=== PATIENT | male | born 1965 | race Caucasian/White ===

== ENCOUNTER 2017-02-11 23:36 | Inpatient (IN) ==
--- NOTE | 2017-02-12 00:58 | Emergency Department Report ---
General Adult HPI - General Chief complaint: Abdominal Pain Stated complaint: Abd pain Time Seen by Provider: 02/12/17 00:04 Source: patient, family Mode of arrival: ambulatory Limitations: no limitations - History of Present Illness HPI narrative: 51-year-old male presents to the emergency department with the chief complaint of abdominal discomfort. Patient notes generalized abdominal discomfort which began at approximately 2:30 this afternoon. Patient states that he is experiencing nausea and has had 3 bowel movements today. Patient has a history of small bowel obstruction in the past. Patient states that his symptoms are similar to his prior SBO which is why he presents to the emergency department today. Patient describes his abdominal discomfort as mild to moderate. No radiation. It is dull and crampy. He does not note any exacerbating or remitting factors. Patient denies any other complaints or associated symptoms. He was at home when the symptoms began. Symptoms have been persistent in nature since onset. Patient denies any trauma, travel, poorly prepared food or recent antibiotic use. - Related Data Home Medications Medication Instructions Recorded Confirmed Ascorbic Acid [Vitamin C] 1 tab PO DAILY #0 06/30/15 02/12/17 Calcium Carbonate/Vitamin D3 2 tab PO BID #0 06/30/15 02/12/17 (Calcium 600 + D Tablet) Imipramine HCl [Tofranil] 2 tab PO DAILY #0 06/30/15 02/12/17 Levetiracetam (Keppra) 1 tab PO 1700 #0 06/30/15 02/12/17 VITAMIN B6 1 tab PO DAILY #0 06/30/15 02/12/17 carBAMazepine [Tegretol] 1 tab PO NOON #0 06/30/15 02/12/17 carBAMazepine [Tegretol] 2 tab PO BID #0 06/30/15 02/12/17 levETIRAcetam [Levetiracetam] 1,500 mg PO AM 02/12/17 02/12/17 Allergies Allergy/AdvReac Type Severity Reaction Status Date / Time morphine Allergy Unknown Verified 02/12/17 00:25 phenobarbital Allergy Unknown Verified 02/12/17 00:25 primidone Allergy Unknown Verified 02/12/17 00:25 valproic acid Allergy Unknown Verified 02/12/17 00:25 Review of Systems Constitutional: Denies: fever, chills Eyes: Denies: eye pain, vision change ENT: Denies: ear pain, throat pain Cardiovascular: Denies: chest pain, palpitations Respiratory: Denies: cough, dyspnea Gastrointestinal: Reports: abdominal pain, nausea, diarrhea. Denies: vomiting Genitourinary: Denies: urgency, dysuria Musculoskeletal: Denies: back pain, arthralgia Integumentary: Denies: erythema, rash Neurological: Denies: headache, numbness Psychiatric: Denies: anxiety, depression Endocrine: Denies: fatigue, heat or cold intolerance Hematological/Lymphatic: Denies: easy bleeding, easy bruising Allergic/Immunologic: Denies: facial swelling, urticaria PFSH Patient Stated Medical History Seizures Yes Obstructive Bowel Yes SBO, MR Surgical History: Appendectomy, cholecystectomy, adhesion lysis, pilonidal cyst removal, oral surgery Family History: COPD, CAD, diabetes - Social History Smoking status: Never smoker Substance use type: does not use Alcohol intake frequency: does not drink Physical Exam - Limitations Limitations: no limitations - General General appearance: alert, in no apparent distress - Normal Exams: Head:: Normocephalic without trauma Eyes:: Pupils are PERRLA w/ EOMI, No scleral icterus, irritation, or foreign bodies noted ENMT:: No facial trauma, nasal exudates, pharyngeal erythema, or exudates are noted Dental: No fractured, loose, or missing teeth noted Neck:: Full range of motion, without adenopathy, JVD, bruits or thyromegaly Chest/Respirations:: Clear all canas, with good airflow, and symmetry bilaterally Cardiovascular:: Regular rate and rhythm, without murmur or gallop, Pulses 2+ all extremities, capillary refill, <2 seconds all extremities Abdomen:: Bowel sounds positive, non-distended, no hepatosplenomegaly, masses or bruits noted (Soft. Mild generalized tender to palpation without rebound or guarding. No CVAT. ) Lymphatic:: No lymphadenopathy, or lymphedema noted Musculoskeletal:: No tenderness, or deformity noted, good range of motion, all extremities Integumentary:: No rashes, hives, or bruising noted, hair and nails, without abnormality Neurological:: Patient is alert, and oriented, cranial nerves, motor/sensory/ cerebellar, exams w/o gross deficits, to observation Psychiatric:: Patient exhibits, appropriate attention, emotion and affect Course Vital Signs Temperature 98.8 F 02/11/17 23:42 Pulse Rate 93 02/11/17 23:42 Respiratory Rate 18 02/11/17 23:42 Blood Pressure 143/78 H 02/11/17 23:42 Pulse Oximetry 97 02/11/17 23:42 Temperature 98.8 F 02/11/17 23:42 Pulse Rate 90 02/12/17 02:10 Respiratory Rate 15 02/12/17 02:10 Blood Pressure 126/67 02/12/17 02:10 Pulse Oximetry 97 02/12/17 02:10 Medical Decision Making - MDM Narrative Medical decision making narrative: Labs/imaging were discussed in detail with the patient and questions are answered. Patient is given IV hydration. Patient is given parental antiemetic medications intravenously with improvement of symptoms in the emergency department. Patient's CT scan of the abdomen and pelvis is positive for a small bowel obstruction. Patient's nausea and vomiting is resolved with Zofran. Patient is discussed with the hospitalist Dr. Samuel Lyons and admitted to the service of Dr. Lugo in improved condition. Patient and family are in agreement with the current plan of management. Dr. Lyons will obtain his own surgical consultation. Patient has seen both Dr. Lizama and leia Heredia in the past. Accepting physician is in agreement with the current plan of management. No further orders. Patient declined offered analgesic pain medication in the ED. - Differential Diagnosis UTI, SBO, viral syndrome, metabolic disorder - Lab Data Result diagrams: 02/12/17 00:42 02/12/17 00:42 Lab Results 02/12/17 02/12/17 02/12/17 Range/Units 00:42 00:42 00:42 WBC 7.5 (4.5-11.0) T/MM3 RBC 4.73 (4.50-5.90) M/MM3 Hgb 15.2 (13.5-17.5) GM/DL Hct 44.0 (41-53) % MCV 93.0 (80-100) UM3 MCH 32.1 (26-34) UUG MCHC 34.5 (31-37) GM/DL RDW Std Deviation 43.8 (36.9-50.2) FL Plt Count 152 (130-400) T/MM3 MPV 9.2 L (9.4-12.4) UM3 Immature Gran % (Auto) 0.1 (0.0-0.5) % Neut % (Auto) 69.0 H (33-66) % Lymph % (Auto) 19.2 L (23-45) % [facility] % (Auto) 10.9 H (0-9.0) % Eos % (Auto) 0.4 (0-4) % Baso % (Auto) 0.4 (0-2) % Neut # 5.2 (1.8-7.7) T/MM3 Lymph # 1.4 (1-4.8) T/MM3 [facility] [facility] # 0.8 (0-0.8) T/MM3 Eos # 0.0 (0-0.5) T/MM3 Baso # 0.0 (0-0.2) T/MM3 Abs Immat Gran (auto) 0.01 (0.00-0.03) T/MM3 Turbidity < 20 (0-20) Sodium 140 (134-144) MEQ/L Potassium 4.0 (3.6-5) MEQ/L Chloride 104 (98-107) MEQ/L Carbon Dioxide 29 (22-30) MEQ/L Anion Gap 7 (5-15) MEQ/L BUN 19.0 (9-20) MG/DL Creatinine 0.7 L (0.8-1.5) MG/DL GFR Calculation 118 BUN/Creatinine Ratio 27 H (6-26) RATIO Glucose 100 (75-110) MG/DL Calculated Osmolality 271 (261-280) MOSM/KG Calcium 9.5 (8.4-10.2) MG/DL Total Bilirubin 1.20 (0.20-1.30) MG/DL Icterus Index < 2 (0-7) AST 188 H (17-59) U/L ALT 119 H (21-72) U/L Alkaline Phosphatase 107 (38-126) U/L Total Protein 7.2 (6.3-8.2) G/DL Albumin 4.4 (3.5-5.0) G/DL Globulin 2.8 (2.4-3.6) G/DL Albumin/Globulin Ratio 1.6 (1.1-2.2) RATIO Lipase 233 (23-300) U/L Specimen Hemolysis < 15 (0-25) Ur Collection Type Urine, clean catch Urine Color Yellow (YELLOW) Urine Clarity Clear Urine pH 7.0 (5.0-8.0) Ur Specific [place] 1.020 (1.015-1.025) Urine Protein 1+ A (NEGATIVE) Urine Glucose (UA) Negative (NEGATIVE) Urine Ketones Negative (NEGATIVE) Urine Occult Blood Negative (NEGATIVE) Urine Nitrate Negative (NEGATIVE) Urine Bilirubin Negative (NEGATIVE) Urine Urobilinogen 1.0 (NORMAL) EU/DL Ur Leukocyte Esterase Negative (NEGATIVE) Urine RBC None seen (0-3) /HPF Urine WBC None seen (0-5) /HPF Urine Bacteria None seen (NEGATIVE) Ur Culture Indicated? Cult not indicated - Radiology Data CT ABD/PELVIS: Small bowel obstruction. No free air. - EKG Data EKG #1 EKG results narrative: Sinus rhythm. 90 bpm. No STEMI. Disposition Clinical Impression: Small bowel obstruction Disposition: To [facility] Print Language: Setswana Condition: Improved Prescriptions: No Action carBAMazepine [Tegretol] 2 tab PO BID #0 carBAMazepine [Tegretol] 1 tab PO NOON #0 Imipramine HCl [Tofranil] 2 tab PO DAILY #0 Calcium Carbonate/Vitamin D3 (Calcium 600 + D Tablet) 2 tab PO BID #0 VITAMIN B6 1 tab PO DAILY #0 Ascorbic Acid [Vitamin C] 1 tab PO DAILY #0 Levetiracetam (Keppra) 1 tab PO 1700 #0 levETIRAcetam [Levetiracetam] 1,500 mg PO AM Referrals: Gerry Cat MD [Family Provider] - Time of Disposition: 03:00 - Seen By: physician
[2017-02-12] MEDS ORDERED: NS 1,000 ML IV ONE (01:04)
[2017-02-12] MEDS ORDERED: SALINE FLUSH 10ml SYRINGE ONE (01:48)
[2017-02-12] MEDS ORDERED: IOHEXOL 300mg/ml 100ml INJECTION ONE (01:48)
[2017-02-12] MEDS ORDERED: NS 0 ML ONE (01:48)
[2017-02-12] MEDS ORDERED: ONDANSETRON 4 MG/2 ML INJECTION IVP ONE (02:38)
--- NOTE | 2017-02-12 03:41 | History & Physical Report ---
History of Present Illness Date: 02/12/17 Chief complaint: abd pain HPI: Pleasant 51 y/o WM presents with N/v x 2 days. Has a hx of recurrent SBO, pain in abd periumbilical with 3-4/10 on pain scale now. started around 2 pm on the day prior to admit, he has not had any vomiting but has had nausea. he actually had to have surgery june 2016 and one month later in july 2016 , this was performed at hospital by dr. suh. he denies having much gas at all, really not any this afternoon or this evening. in previous episodes he had complications of postoperative ileus and hypoxia, he was in the hospital for 20 days following the last one. back in [id number] he did have a seizure around the time of the surgeries. he's not had any seizures suddenly at all. no fever chills no chest pain or shortness of breath. Review of Systems - Integumentary/Breasts Integumentary: Absent: erythema, rash PFSH Patient Stated Medical History Seizures Yes Obstructive Bowel Yes Surgical History: Appendectomy, cholecystectomy, adhesion lysis, pilonidal cyst removal, oral surgery - Social History Smoking status: Never smoker Substance use type: does not use Alcohol intake frequency: does not drink Current occupational status: employed Current occupation: works as a senior media director Current residence: Apartment/Private Home (lives with his sister and brother-in- law) Medications Home Medications Medication Instructions Recorded Confirmed Type Ascorbic Acid [Vitamin C] 1 tab PO DAILY #0 06/30/15 02/12/17 History Calcium Carbonate/Vitamin D3 2 tab PO BID #0 06/30/15 02/12/17 History (Calcium 600 + D Tablet) Imipramine HCl [Tofranil] 2 tab PO DAILY #0 06/30/15 02/12/17 History Levetiracetam (Keppra) 1 tab PO 1700 #0 06/30/15 02/12/17 History VITAMIN B6 1 tab PO DAILY #0 06/30/15 02/12/17 History carBAMazepine [Tegretol] 1 tab PO NOON #0 06/30/15 02/12/17 History carBAMazepine [Tegretol] 2 tab PO BID #0 06/30/15 02/12/17 History levETIRAcetam [Levetiracetam] 1,500 mg PO AM 02/12/17 02/12/17 History Allergies Allergy/AdvReac Type Severity Reaction Status Date / Time morphine Allergy Unknown Verified 02/12/17 00:25 phenobarbital Allergy Unknown Verified 02/12/17 00:25 primidone Allergy Unknown Verified 02/12/17 00:25 valproic acid Allergy Unknown Verified 02/12/17 00:25 Exam Vital Signs: Temperature 97.4 F 02/12/17 03:23 Pulse Rate 89 02/12/17 03:23 Respiratory Rate 15 02/12/17 03:23 Blood Pressure 126/67 02/12/17 03:23 Pulse Oximetry 98 02/12/17 03:23 Oxygen Delivery Method Room Air Height: 1.75 m Weight: 106.6 kg - Constitutional Present: mild distress, obese - Routine HEENT Exam ENT: Present: mucous membranes dry - Routine Respiratory Exam Present: CTA bilaterally. Absent: accessory muscle use - Routine Cardiovascular Exam Present: RRR, S1, S2, no murmur - Routine Abdominal Exam Present: soft Comments: quiet bowel sounds, moderately distended. mildly tender to palpation. Results - Labs CBC & Chem 7: 02/12/17 00:42 02/12/17 00:42 Assessment and Plan (1) Small bowel obstruction Current visit: Yes Status: Acute 02/12/17 03:42 hx of this probably d/t adhesions, NPO for now, with hx, going to ask that NG be placed Hopefully with conservative care can avoid need for surgical intervention. with his past history, he said needed surgeries, hopefully with conservative care we can give this a try, but i'm concerned enough, need to consult surgery in AM to follow. 02/12/17 04:32 (2) Epilepsy Current visit: Yes Status: Acute 02/12/17 03:42 cont keppra IV while NPO (3) Cognitive impairment Current visit: Yes Status: Acute DVT Prophylaxis: SCD's, [facility] Course Summary Disclaimer: The visit summary below is not to be considered part of the above Progress Note.
[2017-02-12 04:33] VITALS: BMI 35.2
[2017-02-12] MEDS: PROMETHAZINE 25 MG INJECTION IVP PRN (04:45)
[2017-02-12] MEDS: HYDROMORPHONE 2 MG/ML INJECTION IVP PRN (04:45)
[2017-02-12] MEDS: D5-1/2NS with KCL 20mEq 1,000 ML IV SCH ×3 (04:46→22:28)
[2017-02-12] MEDS ORDERED: LEVETIRACETAM INJ 1,000 MG in NS 100 ML IV SCH ×2 (07:00→22:00)
--- NOTE | 2017-02-12 08:06 | CT Scan Report ---
Indication: abd pain PROCEDURE: CT abdomen pelvis wo con: Encounter: Initial Comparison: KUB and small bowel series dated July 03, [address] abdomen/pelvis dated June 30, 2015 Technique: Axial CT images were performed through the abdomen and pelvis without intravenous contrast. Coronal and sagittal two-dimensional reformats. Automated Exposure Control and Iterative Reconstruction dose reducing techniques were utilized. Findings: The lung bases are clear. The unenhanced contours of the liver are unremarkable. Gallbladder is unremarkable. The spleen, pancreas and adrenal glands are within normal limits. Kidneys appear normal. Distended small bowel loops are seen in the anterior abdomen and pelvis. There is transition to decompressed distal small bowel seen in the right anterior pelvis. Short segment of decompressed terminal ileum. No free air. Bladder is normal. Unchanged. Impression: High-grade partial small bowel obstruction in the ileum probably due to pelvic adhesions. The appearance is very similar to the 2014 comparison. Surgical consultation is recommended. There is a preliminary report by [facility]. .
[2017-02-12] MEDS ORDERED: HEPARIN 5,000unit/ml 1ml INJECTION SUB-Q SCH (09:00)
[2017-02-12] MEDS: PANTOPRAZOLE 40 MG INJECTION IVP SCH (09:04)
[2017-02-12] MEDS: HEPARIN SUB-Q 5,000 UNITS/0.5 ML INJECTION SQ SCH ×2 (09:16→17:39)
[2017-02-12] MEDS: CarBAMazepine 200 MG TABLET PO SCH ×3 (11:47→22:04)
[2017-02-12] MEDS: CETACAINE SPRAY 20 G MM PRN ×2 (12:02→14:27)
--- NOTE | 2017-02-12 14:17 | XRay Report ---
Indication: SBO PROCEDURE: XR KUB w upright: Encounter: Initial Comparison: CT abdomen and pelvis dated February 12, 2017 Findings: Nasogastric tube in place with the tip and side port projecting over the body of the stomach. No free air identified. Dilated small and large bowel with multiple air-fluid levels present. Small bowel dilatation up to 6.5 cm in the left pelvis. There is some colonic gas present to the level of the sigmoid. Impression: New nasogastric tube appears appropriately positioned. Continued findings of small bowel obstruction. .
[2017-02-12] MEDS ORDERED: NS FLUSH BAG 500ml IV PRN (21:21)
[2017-02-12] MEDS ORDERED: SALINE FLUSH 10ml SYRINGE IV PRN (21:21)
[2017-02-13] MEDS: D5-1/2NS with KCL 20mEq 1,000 ML IV SCH ×5 (00:02→18:02)
[2017-02-13] MEDS: HEPARIN SUB-Q 5,000 UNITS/0.5 ML INJECTION SQ SCH ×3 (00:14→16:44)
[2017-02-13] MEDS: CETACAINE SPRAY 20 G MM PRN ×2 (02:29→08:38)
[2017-02-13] MEDS: PANTOPRAZOLE 40 MG INJECTION IVP SCH (08:18)
[2017-02-13] MEDS: PYRIDOXINE 100mg TABLET PO SCH (08:18)
[2017-02-13] MEDS: CarBAMazepine 200 MG TABLET PO SCH ×3 (08:18→16:44)
[2017-02-13] MEDS ORDERED: NS IV SCH (09:00)
[2017-02-13] MEDS ORDERED: LEVETIRACETAM IV SCH (09:00)
[2017-02-13] MEDS ORDERED: VITAMIN B6 PO SCH (09:00)
[2017-02-13] MEDS: HYDROMORPHONE 2 MG/ML INJECTION IVP PRN (10:41)
--- NOTE | 2017-02-13 12:19 | Progress Note ---
Subjective: Marcelo was seen with his sister at bedside. He reports his nose hurts but he is having less throat pain and yesterday. He reports having some flatus this morning please had no bowel movement. He denies abdominal pain but is having some back pain requiring IV pain medications earlier which resulted in transient nausea. He denied dyspnea, fever, or lightheadedness. Patient has been ambulating without difficulty. Nursing reports minimal output per the NG. Objective Vital signs: Temperature 98.0 F 02/13/17 07:29 Pulse Rate 98 02/13/17 07:29 Respiratory Rate 18 02/13/17 07:29 Blood Pressure 133/71 02/13/17 07:29 Pulse Oximetry 97 02/13/17 07:29 Oxygen Delivery Method Room Air EXAM General-NAD, alert HEENT-conjunctiva clear, impaired eye movements to the left consistent with sixth cranial nerve palsy, sclera anicteric this morning, oropharynx clear Lungs-respirations nonlabored, good airflow, breath sounds clear Cardiac-regular rhythm, S1-S2 Abd-abdomen moderately distended, soft, minor tenderness diffusely without guarding, sparse bowel sounds Ext-without edema Neuro-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 Patient denies ongoing Repeat flat/upright KUB to monitor small bowel loop dilatation. Dr. Mckeon consulted for surgical input-discussed with him earlier this morning. Clinically stable, Keppra changed to oral administration per NG in conjunction with Tegretol. White count down-reassess in a.m. at which time liver enzymes will be repeated as well. Heating pad added for back pain. Sepsis Assessment - Evaluation Sepsis screening result: No Definite Risk Hospital Course Summary Disclaimer: The visit summary below is not to be considered part of the above Progress Note. Hospital Course: 02/12/17 Admitted with small bowel obstruction-NG tube placed to low intermittent suction. IV fluids, IV antiemetics/pain medications if needed. History recurrent small bowel obstructions with surgical intervention 2 previously. Seizure medications resumed-Tegretol by mouth with NG clamped post administration. Liver enzymes elevated, likely due to seizure medications reviewed reassess in several days. 02/13/17 12:26 Reported flatus this morning, minimal output per NG. Patient denies ongoing Repeat flat/upright KUB to monitor small bowel loop dilatation. Dr. Mckeon consulted for surgical input-discussed with him earlier this morning. Clinically stable, Keppra changed to oral administration per NG in conjunction with Tegretol. White count down-reassess in a.m. at which time liver enzymes will be repeated as well. Heating pad added for back pain.
--- NOTE | 2017-02-13 13:46 | XRay Report ---
Indication: SBO PROCEDURE: XR KUB w upright: Encounter: Initial Comparison: February 12, 2017 Findings: Nasogastric tube in stable position. Continued air-fluid levels within small and large bowel. No free air appreciated. There is some distal rectal gas present. Dilated small bowel in the lower abdomen remains up to 8.9 cm in diameter. Impression: Continued small bowel dilatation concerning for high-grade or complete small bowel obstruction. .
--- NOTE | 2017-02-13 14:46 | Consultation ---
DATE OF CONSULTATION 02/13/2017 HISTORY OF PRESENT ILLNESS This patient is 51 years old. This patient underwent a cholecystectomy and incidental appendectomy at some time in the . The patient did undergo an operation for treatment of small bowel obstruction about two years after this cholecystectomy operation at some time in the by Dr. Kassandra Conte at [facility]. The patient did have another small bowel obstruction in 2001. This was treated with nonoperative treatment. The patient was hospitalized at [facility] from 06/30/2015 to 2014 with a partial small bowel obstruction. Dr. Lazaro Heredia saw the patient in consultation for Dr. Cohn during this hospitalization. This episode of partial small bowel obstruction did resolve with nonoperative treatment. The patient did undergo an operation for lysis of abdominal adhesions and release of a small bowel obstruction on 07/18/[address] Jain at [facility] at [place], [place]. The family states that this was a 4-hour long operation. The family states they were told that there was extensive scar tissue and adhesions throughout the abdomen. The patient did undergo an exploratory laparotomy operation in July 2016 about 10 days after the 07/18/2016 operation and this was performed by Dr. Jain at [facility] at [place], [place]. The abdomen of the patient was explored at this time because there was concern that the patient might have some leakage from bowel somewhere. The family states that the operation lasted for about two hours and that Dr. Jain was not able to identify any site of leakage from the bowel during this exploratory laparotomy. 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 The patient states they were told by Dr. Jain after all this that he would never operate on the patient again at [facility]. During the time that the enterocutaneous fistula was healing, the family did take the patient to Dr. Galileo Valentine at [place], [place] for a second opinion about the enterocutaneous fistula. Dr. Valentine did tell them at this time that he would not operate on the enterocutaneous fistula until after at least 6 months of nonoperative treatment following the operation in July 2016. He told the family that even if he did go in after six months that it would be an extremely long and difficult operation. Fortunately, the enterocutaneous fistula did ultimately close without the need for an operation. The patient did experience the onset of some periumbilical abdominal pain on . He had some nausea and vomiting. The family did not take the patient back to [facility] at this time because they had been told by Dr. Jain that he would never perform an operation on the patient at [facility]. The family therefore brought the patient back to [facility] at this time and the patient was evaluated at the emergency room at [facility] on 02/12/2015. The patient did undergo a CT scan of the abdomen and pelvis at the time of evaluation in the emergency room at [facility] which did show a high-grade partial small bowel obstruction at the ileum probably due to pelvic adhesions. The appearance was similar to the appearance on CT scans performed at the time of the 2014 hospitalization. The patient was admitted to [facility]. The patient has been receiving nonoperative treatment with intravenous fluids, bowel rest and nasogastric tube decompression of the upper gastrointestinal tract. The possible need for TPN has been discussed with the family. The patient is not having any abdominal pain at this time. He has been passing some flatus today. The patient did undergo KUB and upright abdominal x-rays on 02/12/2017 which showed continued findings of small bowel obstruction. There are dilated small bowel and large bowel loops with multiple air-fluid levels. There is some gas in the colon at the level of the sigmoid colon. PAST MEDICAL HISTORY Previous Operations. 1. Pilonidal cystectomy in [address]assandra Conte at [facility] at [place], [place]. 2. Open cholecystectomy and incidental appendectomy at some time in the by Dr. Kassandra Conte at [facility] at [place], [place]. The family states that this was sometime after 1990. 3. Exploratory laparotomy with release of small bowel obstruction at some time in the by Dr. Kassandra Conte at [facility] at [place], [place]. This was performed about two years after the open cholecystectomy operation. 4. Exploratory laparotomy with lysis of intraabdominal adhesions and release of small bowel obstruction on 07/18/[address] Jain at [facility] at [place], [place]. The family states that this was a 4-hour long operation. The family states that they were told afterwards by Dr. Jain that there was extensive scar tissue and adhesions throughout the abdomen at this operation. 5. Exploratory laparotomy in July [address] Jain at [facility] at [place], [place]. This was about 10 days after the 07/18/2016 operation. The family states that the patient underwent this exploratory laparotomy operation because of concern about possible leakage from the bowel somewhere. They state that Dr. Jain explored the abdomen for two hours and could not find any site for leakage from the bowel. 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 The family states that Dr. Jain told them that he would never operate on the patient again at [facility] after this operation because of the hostile abdomen which the patient does now seem to have. PHYSICAL EXAMINATION VITAL SIGNS: Temperature is 98 degrees oral. Pulse is 98. Respiratory rate is 18. Blood pressure is 133/71. Oxygen saturation is 97% on room air. ABDOMEN: The abdomen is soft and nontender at this time. There are old midline vertically oriented abdominal incision scars. There is some mild distention of the abdomen. LABORATORY DATA White blood cell count is 3,900 today with no bands. There are 47.7% neutrophils and 33.9% lymphocytes. Hemoglobin is 14.3. Hematocrit is 43. Electrolytes are normal. IMAGING DATA The patient did have a CT scan of the abdomen and pelvis on 02/12/2017 at [facility] which shows a high-grade partial small bowel obstruction at the ileum probably due to pelvic adhesions. The patient did have KUB and upright abdominal x-rays performed on 02/12/2017 which show dilated small bowel and large bowel with multiple air-fluid levels. There is small bowel dilation up to 6.5 cm in the left pelvis. There is some colon gas present at the level of sigmoid colon. There are continued findings of small bowel obstruction. IMPRESSION 1. High-grade partial small bowel obstruction at the ileum probably due to pelvic adhesions. 2. 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 3. Status post enterocutaneous fistula in July 2016. RECOMMENDATION 1. Long trial of nonoperative treatment to see if the partial small bowel obstruction will respond to nonoperative treatment. This can consist of bowel rest, intravenous fluid administration and decompression of the upper gastrointestinal tract with nasogastric tube decompression. The patient will probably require nutritional support with TPN during this time. Hopefully, the partial small bowel obstruction will resolve with nonoperative treatment. MTDD
[2017-02-13] MEDS ORDERED: LEVETIRACETAM 500 MG TABLET PO SCH (21:00)
[2017-02-14] MEDS: PROMETHAZINE 25 MG INJECTION IVP PRN (01:29)
[2017-02-14] MEDS: D5-1/2NS with KCL 20mEq 1,000 ML IV SCH ×3 (01:33→10:23)
[2017-02-14] MEDS: HEPARIN SUB-Q 5,000 UNITS/0.5 ML INJECTION SQ SCH ×2 (01:33→09:43)
[2017-02-14 08:15] VITALS: BP 144/82; PULSE 99; RESP 18; TEMP 97.6; O2SAT 97
--- NOTE | 2017-02-14 08:31 | XRay Report ---
Indication: Small bowel obstruction PROCEDURE: XR KUB w upright: Encounter: Initial Comparison: February 13, 2017 Findings: Nasogastric tube remains in place. Dilated small bowel loops with air-fluid levels are redemonstrated. No gross air. Severe small bowel dilatation up to 8.8 cm in the upper abdomen. Scattered areas of colonic gas are seen through the level of the rectum. Impression: Continued findings concerning for a high-grade small bowel obstruction. .
[2017-02-14] MEDS ORDERED: LEVETIRACETAM 500 MG TABLET PO SCH (09:00)
[2017-02-14] MEDS: CarBAMazepine 200 MG TABLET PO SCH (09:43)
[2017-02-14] MEDS: PYRIDOXINE 100mg TABLET PO SCH (10:12)
[2017-02-14] MEDS: PANTOPRAZOLE 40 MG INJECTION IVP SCH (10:16)
--- NOTE | 2017-02-14 10:47 | Discharge Instructions ---
Discharge Plan - Med Rec/Dispo [place] Instructions: Bowel Obstruction (DC) Prescriptions: New Heparin [Heparin Sq] 5,000 units SQ Q8HR vial Hydromorphone [Dilaudid] 0.2 - 1 mg IVP Q2H PRN vial PRN Reason: Pain Pantoprazole IV [Protonix IV] 40 mg IVP DAILY vial Tetracaine/Benzocaine/Butamben [Cetacaine [place]] 1 spray MM PRN PRN #1 bottle PRN Reason: Pain Continue carBAMazepine [Tegretol] 2 tab PO BID #0 carBAMazepine [Tegretol] 1 tab PO NOON #0 Imipramine HCl [Tofranil] 2 tab PO DAILY #0 Calcium Carbonate/Vitamin D3 (Calcium 600 + D Tablet) 2 tab PO BID #0 Ascorbic Acid [Vitamin C] 1 tab PO DAILY #0 levETIRAcetam [Levetiracetam] 1,000 mg PO 1700 levETIRAcetam [Levetiracetam] 1,500 mg PO AM Changed VITAMIN B6 100 mg PO DAILY #0 Discharge Instructions/Outpatient Orders: Final Provider Discharge Instructions Location: Determined By Patient - Disposition 02 To [facility] Acute Care
--- NOTE | 2017-02-14 10:58 | Discharge Summary ---
Discharge Information Date of admission: 02/12/17 03:45 Anticipated date of discharge: 02/14/17 Attending Physician: Jovana Lugo MD Primary care physician: Gerry Cat MD Consults: Consulting Provider: Zach Mckeon Reason For Exam: SBO - Discharge Diagnosis (1) Small bowel obstruction Status: Acute (2) Epilepsy Qualifiers: Epilepsy type: unspecified Intractability: not intractable Status epilepticus: without status epilepticus Qualified Code(s): G40.909 - Epilepsy , unspecified, not intractable, without status epilepticus Problem Details: no recent seizures Status: Chronic - Laboratory Labs: Admission labs on 02/12 included white count of 7.5, hemoglobin 15.2 with unremarkable differential. Electrolytes were within normal limits, creatinine 0.7, AST 188, ALT 119, urinalysis negative other than +1 protein. 02/14/17 04:21 Segs 36, bands 6, lymphocytes 43, monocytes 14, eosinophils 1 02/14/17 04:21 AST 77, ALT 206, alkaline phosphatase 128 - Radiology Radiology: CT abdomen/pelvis on 02/12/17: Findings: The lung bases are clear. The unenhanced contours of the liver are unremarkable. Gallbladder is unremarkable. The spleen, pancreas and adrenal glands are within normal limits. Kidneys appear normal. Distended small bowel loops are seen in the anterior abdomen and pelvis. There is transition to decompressed distal small bowel seen in the right anterior pelvis. Short segment of decompressed terminal ileum. No free air. Bladder is normal. Impression: High-grade partial small bowel obstruction in the ileum probably due to pelvic adhesions. The appearance is very similar to the 2015 comparison. Surgical consultation is recommended. Flat/upright KUB later in the day on 02/12: Nasogastric tube in place with the tip and side port projecting over the body of the stomach. No free air identified. Dilated small and large bowel with multiple air-fluid levels present. Small bowel dilatation up to 6.5 cm in the left pelvis. There is some colonic gas present to the level of the sigmoid. Impression: New nasogastric tube appears appropriately positioned. Continued findings of small bowel obstruction. Flat/upright KUB on 02/13: Nasogastric tube in stable position. Continued air-fluid levels within small and large bowel. No free air appreciated. There is some distal rectal gas present. Dilated small bowel in the lower abdomen remains up to 8.9 cm in diameter. Impression: Continued small bowel dilatation concerning for high-grade or complete small bowel obstruction. Flat/upright KUB on 02/14: Nasogastric tube remains in place. Dilated small bowel loops with air-fluid levels are redemonstrated. No gross air. Severe small bowel dilatation up to 8.8 cm in the upper abdomen. Scattered areas of colonic gas are seen through the level of the rectum. Impression: Continued findings concerning for a high-grade small bowel obstruction. History of Present Illness HPI: Pleasant 51 y/o WM presents with N/dry heaves x 12 hours. Has a hx of recurrent SBO. Complains of pain in abd periumbilical with 3-4/10 on pain scale now. Started around 2 pm on the day prior to admit, he has not had any vomiting but has had nausea. He actually had to have surgery in June 2016 with relook surgery 10 days later followed by development of a fistula. This was performed in [place] by Dr. Jain. He has had one prior surgery for SBO many years ago. He denies having much gas at all, really not any this afternoon or this evening. In previous episodes he had complications of postoperative ileus and hypoxia, he was in the hospital for 20 days following the last one. Back in - he did have a seizure around the time of the surgeries. He's not had any seizures since. No fever chills no chest pain or shortness of breath. Hospital Course This is a general summary of the patient's hospital course. For more details refer to the complete medical record. Hospital course: Impression: SBO History epilepsy Cognitive impairment Transaminitis Neutropenia, likely medication induced Back pain, chronic Mr. Tijerina was admitted early in the morning on 02/12 with clinical and radiographic findings suggestive of high-grade partial small bowel obstruction. NG tube was placed to low intermittent suction and IV fluids/antiemetics/pain medications initiated. He had relatively few GI symptoms thereafter but repetitively complained of nasal and throat pain and requested that the NG be discontinued. Follow-up KUBs however demonstrated progressive worsening of bowel loop dilatation. The patient's abdomen was benign and he reported flatus despite deteriorating radiographic findings. Relatively low volumes have been reported per NG suction and the NG has been flushed and repositioned on the date of discharge. His sister/guardian has been insistent on continued use of his oral seizure medications due to past seizure when medications were interrupted. This has necessitated clamping the NG for short periods of time after medication administration 3 times daily. Patient does not describe increased symptoms when the NG was clamped. Dr. Mckeon was consulted for surgical recommendations. Due to persistent marked dilatation of bowel loops ( and risk of perforation) he advised transfer to a tertiary hospital given the complexity of the patient's prior surgical intervention. The patient has previously been cared for by Dr. Galileo Valentine and arrangements were made to transfer to Dr. Valentine's service at [facility]. Midline catheter was placed during the hospital course. Intent was to change to a PICC line to permit administration of TPN on the date of discharge but this was not completed prior to transfer. Unrelated to small bowel obstruction the patient had elevated transaminases on admission, likely related to seizure medications. White count dropped progressively through the hospital course without clear indication although Tegretol is suspect. Hematology consultation may be considered. On the day of discharge the patient reported that he is passing gas and has minor nasal discomfort. He denied dyspnea or lightheadedness. He denied abdominal pain and reported that the only discomfort he has some mild nasal pain associated with the NG tube. The patient was alert and appeared comfortable. Respirations were nonlabored the abdomen was soft with mild distention. Abdomen was nontender on palpation. Patient is transferred to [facility] under the care of Dr. Valentine. He 'll ultimately return to the care of Dr. Gerry Cat in [place]. Time spent with patient: discharge greater than 30 minutes DVT Prophylaxis: SQ Heparin Discharge Plan - Med Rec/Dispo [place] Instructions: Bowel Obstruction (DC) Prescriptions: New Heparin [Heparin Sq] 5,000 units SQ Q8HR vial Hydromorphone [Dilaudid] 0.2 - 1 mg IVP Q2H PRN vial PRN Reason: Pain Pantoprazole IV [Protonix IV] 40 mg IVP DAILY vial Tetracaine/Benzocaine/Butamben [Cetacaine [place]] 1 spray MM PRN PRN #1 bottle PRN Reason: Pain Continue carBAMazepine [Tegretol] 2 tab PO BID #0 carBAMazepine [Tegretol] 1 tab PO NOON #0 Imipramine HCl [Tofranil] 2 tab PO DAILY #0 Calcium Carbonate/Vitamin D3 (Calcium 600 + D Tablet) 2 tab PO BID #0 Ascorbic Acid [Vitamin C] 1 tab PO DAILY #0 levETIRAcetam [Levetiracetam] 1,000 mg PO 1700 levETIRAcetam [Levetiracetam] 1,500 mg PO AM Changed VITAMIN B6 100 mg PO DAILY #0 Discharge Instructions/Outpatient Orders: Final Provider Discharge Instructions Location: Determined By Patient - Disposition 02 To [facility] Acute Care
== END 2017-02-14 11:35 | disposition short-term general hospital (02) | DRG 390 ==
LOC: ED 23:36 → SRG 02-12 03:45
PROVIDERS: ADMIT Pediatrics; ATTEND Internal Medicine